=== PATIENT | female | born 1985 | race Caucasian/White ===

== ENCOUNTER 2022-06-02 14:21 | Emergency (ER) | payer MEDICAID, SELFPAY ==
[2022-06-02] VITALS (16 sets, daily range): BP systolic 124–131; BP diastolic 92–93; PULSE 74–93; RESP 16–25; O2SAT 95–100; BMI 27.4
--- NOTE | 2022-06-02 14:31 | W.ED.CHESTPA ---
HPI - Chest Pain General: Chief Complaint: Chest Pain Stated Complaint: chest tightness Time Seen by Provider: 06/02/22 14:31 History of Present Illness: Ms Herrera is a 36-year-old lady with complex past medical history including history of myocardial infarction in 2012 and history of arrhythmia with ablation presenting to the emergency department due to chest tightness and tachycardia. She reports mild intermittent episodes a few times a week that are typically short-lived however today has had multiple of persistent episodes and recurrent episodes of palpitations with racing heart associated with chest tightness that radiates to the neck and shortness of breath. Intensity when present is moderate to severe. This has not completely resolved despite improvement in heart rate and currently is mild. She was seen in clinic and heart rate at that time was in the 200s however converted with IV start prior to medication or other treatment. She does report being compliant with her metoprolol regimen and has not missed any doses. No other specific changes in health, exacerbating, or alleviating factors identified. Onset (ago): hour(s) Timing of current episode: constant Prior episodes: Yes Onset: during rest Pain location: substernal Pain radiation: neck Severity: moderate Quality: tightness and heaviness Relieving factors: nothing Exacerbating factors: nothing Associated symptoms: Reports dyspnea and palpitations Review of Systems General: Reports: 10 or more systems reviewed and unremarkable except in HPI and below Card: Reports: palpitations Resp: Reports: dyspnea PFSH ED PFSH: Medical History History of atrial fibrillation History of congestive heart failure History of [place] (myocardial infarction) Surgical History History of bilateral tubal ligation History of low transverse section history of six previous c-sections Family History Unknown Cancer 1st maternal cousin, ovarian cancer, hysterectomy, alive 1st materlnal cousin, uterine cancer, hysterectomy, alive She denies a family hx of colon, pancreatic, breast, thyroid cancers Other Diabetes Hypertension Denies family history of Stroke Physical Exam Const: COMMON NORMALS: alert GENERAL APPEARANCE: cooperative and well developed HENMT: COMMON NORMALS: normocephalic and atraumatic HEAD & SCALP: normocephalic and atraumatic Eye: COMMON NORMALS: conjunctivae normal CONJUNCTIVA: Yes conjunctivae normal SCLERA: sclerae normal Neck/C-Spine: COMMON NORMALS: supple GENERAL: Yes trachea midline Resp: COMMON NORMALS: clear to auscultation bilaterally EFFORT & INSPECTION: Yes able to speak in complete sentences AUSCULTATION: clear to auscultation bilaterally Cardio: COMMON NORMALS: regular rhythm RATE: tachycardic RHYTHM: regular rhythm GI: COMMON NORMALS: Soft to palpation PALPATION: Yes Soft to palpation and No Tenderness to palpation present (GI) Extremity: GENERAL: Yes normal exam except as noted and No edema Neuro: COMMON NORMALS: moves all extremities SENSORIUM/ORIENTATION: Yes alert and No Orientation impaired Psych: COMMON NORMALS: mental status grossly normal and Normal thought process present THOUGHT PROCESS: Normal thought process present Course Vital Signs: Vital signs: Vital Signs Pulse Rate 77 06/02/22 18:00 Respiratory Rate 16 06/02/22 18:00 Blood Pressure 124/92 06/02/22 18:00 Pulse Oximetry 98 06/02/22 18:00 Oxygen Delivery Me thod 06/02/22 14:36 MDM - Chest Pain Medical Decision Making 36-year-old lady presenting with chest tightness and palpitations. Patient does have history of SVT. Exam as above. She is nontoxic in appearance. EKG notable for sinus tachycardia, nonspecific URS segment abnormalities, no STEMI. Labs with no leukocytosis, normal hemoglobin, normal platelet count. Metabolic end without acute derangement to explain symptoms. Intermediate range 2-hour delta troponin though not unexpected in the context of tachycardia. hCG is negative as is urinalysis. Chest x-ray with no lobar consolidation or pneumothorax. Patient treated with aspirin and 500 cc bolus of IV fluids. On reassessment patient feels improved with improvement in heart rate. The most likely etiology of patient symptoms is unclear, likely secondary to underlying arrhythmia. The results of ED evaluation were discussed with the patient including possible disposition options. I offered admission which the patient declined. Plan for outpatient follow-up with cardiology. I discussed prescriptions and/or symptomatic cares (if applicable) including appropriate and responsible use, followup plan, and return precautions. The patient verbalized understanding and felt safe for discharge. Medical Records I reviewed the patient's medical records. Lab Data I reviewed the patient's lab results. 06/02/22 14:50 06/02/22 14:50 Radiology Impressions Chest X-Ray 06/02/22 14:38 IMPRESSION: No acute findings. Laboratory Results WBC 9.3 10^3/uL (4.0-10.0) 06/02/22 14:50 RBC 5.08 10^6/uL (4.1-5.3) 06/02/22 14:50 Hgb 11.8 g/dL (11.5-15.3) 06/02/22 14:50 Hct 38.2 % (37.0-47.0) 06/02/22 14:50 MCV 75.2 fl (81-99) L 06/02/22 14:50 MCH 23.2 pg (28.0-34.0) L 06/02/22 14:50 MCHC 30.9 g/dL (30.0-36.0) 06/02/22 14:50 RDW 20.8 % (12.1-15.1) H 06/02/22 14:50 Plt Count 350 10^3/cmm (130-400) 06/02/22 14:50 MPV 10.7 fL (7.4-10.4) H 06/02/22 14:50 Neut % (Auto) 66.7 % 06/02/22 14:50 Lymph % (Auto) 23.0 % 06/02/22 14:50 [place] % (Auto) 6.7 % 06/02/22 14:50 Eos % (Auto) 2.3 % 06/02/22 14:50 Baso % (Auto) 1.1 % 06/02/22 14:50 Neut # (Auto) 6.21 10^3/uL (1.8-7.7) 06/02/22 14:50 Lymph # (Auto) 2.1 10^3/uL (0.8-4.8) 06/02/22 14:50 [place] # (Auto) 0.6 10^3/uL (0.2-0.9) 06/02/22 14:50 Eos # (Auto) 0.2 10^3/uL (0.0-0.8) 06/02/22 14:50 Baso # (Auto) 0.1 10^3/uL (0.0-0.1) 06/02/22 14:50 Nucleated RBC % (auto) 0 % 06/02/22 14:50 Nucleated RBCs # 0.0 /100WBC 06/02/22 14:50 Sodium 138 mmol/L (136-145) 06/02/22 14:50 Potassium 4.1 mmol/L (3.5-5.1) 06/02/22 14:50 Chloride 106 mmol/L (98-107) 06/02/22 14:50 Carbon Dioxide 23 mmol/L (22-29) 06/02/22 14:50 Anion Gap 13.1 (5-19) 06/02/22 14:50 BUN 12 mg/dL (6-20) 06/02/22 14:50 Creatinine 0.6 mg/dL (0.5-0.9) 06/02/22 14:50 GFR Calculation 112.5 mL/min (90-130) 06/02/22 14:50 Glucose 91 mg/dL (65-115) 06/02/22 14:50 Calculated Osmolality 285 mOsm/kg (285-295) 06/02/22 14:50 Calcium 8.9 mg/dL (8.5-10.5) 06/02/22 14:50 Magnesium 2.1 mg/dL (1.7-2.3) 06/02/22 14:39 Total Bilirubin 0.2 mg/dL (0.15-1.2) 06/02/22 14:50 AST 19 U/L (0-32) 06/02/22 14:50 ALT 15 U/L (0-33) 06/02/22 14:50 Alkaline Phosphatase 50 U/L (35-105) 06/02/22 14:50 Troponin T Baseline 12 ng/L (0-10) H 06/02/22 14:50 Troponin T 120 Minute 18.43 ng/L (0-10) H 06/02/22 16:58 Delta Troponin T 6.43 ABS# (0-10) 06/02/22 16:58 NT-Pro-B Natriuret Pep 597 pg/mL (0-125) H 06/02/22 14:50 Total Protein 6.4 g/dL (6.6-8.7) L 06/02/22 14:50 Albumin 4.0 g/dL (3.5-5.2) 06/02/22 14:50 Globulin 2.4 g/dL (1.3-4.6) 06/02/22 14:50 Lipase 39 U/L (13-60) 06/02/22 14:50 HCG, Qual Negative (Negative) 06/02/22 14:31 Urine Color Yellow (Yellow) 06/02/22 14:31 Urine Appearance Clear (CLEAR) 06/02/22 14:31 Urine pH 7 (5-7) 06/02/22 14:31 Ur Specific [place] 1.010 (1.005-1.030) 06/02/22 14:31 Urine Protein Neg (Negative) 06/02/22 14:31 Urine Glucose (UA) Norm (Normal) 06/02/22 14:31 Urine Ketones Negative (Negative) 06/02/22 14:31 Urine Blood Neg (Negative) 06/02/22 14:31 Urine Nitrate Negative (Negative) 06/02/22 14:31 Urine Bilirubin Neg (Negative) 06/02/22 14:31 Urine Urobilinogen Norm mg/dL (Negative) 06/02/22 14:31 Ur Leukocyte Esterase Negative (Negative) 06/02/22 14:31 Discharge Plan Discharge Patient Disposition: Home Clinical Impression: Chest pain, Tachyarrhythmia Condition: Stable Prescriptions: New metoprolol tartrate 25 mg tablet 25 mg PO TID PRN (Reason: tachycardia) Qty: 30 0RF No Action ferrous sulfate 325 mg (65 mg iron) tablet,delayed release (DR/EC) 325 mg PO DAILY metoprolol succinate 25 mg tablet extended release 24 hr 25 mg PO DAILY Aspir-81 81 mg Tablet,Delayed Release (Dr/Ec) 81 mg PO DAILY Vitamin D3 25 mcg (1,000 unit) Capsule 25 mcg PO DAILY Discharge Orders: Discharge ED (Routine); Ordered 06/02/22 Ordered By: John Huang Discharge Diet: Usual diet Discharge Activity: Resume usual activity Patient Instructions: Chest Pain (ED), Tachycardia (ED) Activity Restrictions/Additional Instructions: Thank you for visiting the emergency department. You were seen and evaluated for chest pain associated with high heart rate. The exact cause of the change in your arrhythmia is unclear. I did offer admission which you are declining at this time. I will message case management for further outpatient testing and follow-up with cardiology. Please continue your previous medication regimen. I will also prescribe metoprolol 25 mg to take as needed up to 3 times daily for high heart rate. Return to the emergency department for anything that you are concerned about and feel needs emergency department evaluation. Coding Level of Care Code ED Prop And Effects Designer for Frances Soliz
--- NOTE | 2022-06-02 14:38 | XRR_ITS ---
PROCEDURE INFORMATION: Exam: XR Chest Exam date and time: 06/02/2022 2:42 PM Age: 36 years old Clinical indication: Pain; Patient HX: History--chronic chest tightness, SOB; Additional info: Cp, tachycardia TECHNIQUE: Imaging protocol: Radiologic exam of the chest. Views: 1 view. COMPARISON: No relevant prior studies available. FINDINGS: Lungs: Unremarkable. No consolidation. Pleural spaces: Unremarkable. No pleural effusion. No pneumothorax. Heart/Mediastinum: Unremarkable. No cardiomegaly. Bones/joints: Unremarkable. XR/XR chest 1V portable [id number] IMPRESSION: No acute findings.
--- NOTE | 2022-06-02 14:38 | ECG_ITS ---
[facility] Test Date: 2022-06-02 Pat Name: Arlene Herrera Department: Room: Gender: Female Filenet Developer: : 1985 Requested By: John Huang Order Number: [id number] Sarah MD: Lorelei Thompson M.D. Measurements Intervals [place] Rate: 106 P: 73 UT: 132 QRS: 8 QRSD: 117 T: 43 QT: 356 QTc: 474 Interpretive Statements SINUS TACHYCARDIA POSSIBLE LEFT VENTRICULAR HYPERTROPHY [VOLTAGE CRITERIA PLUS LAE OR QRS WIDENING] POSSIBLE SEPTAL MYOCARDIAL INFARCTION , OF INDETERMINATE AGE [30 ms Q WAVE IN V1/V2] No previous ECG available for comparison Electronically Signed On 06-02-2022 22:49:05 CDT by Lorelei Thompson M.D. [id number]
[2022-06-02] MEDS: aspirin 81 mg Chew Tablet 324 MG PO (14:52)
[2022-06-02] MEDS: sodium chloride 0.9% 500 ML 999 ML IV (14:53)
[2022-06-02 14:55] LABS: HCG Qualitative Urine. Negative (Negative)
[2022-06-02 14:59] LABS: Basophils # 0.1 10^3/uL (0.0-0.1); Basophils % 1.1 %; Eosinophils # 0.2 10^3/uL (0.0-0.8); Eosinophils % 2.3 %; Hematocrit 38.2 % (37.0-47.0); Hemoglobin 11.8 g/dL (11.5-15.3); Lymphocytes # 2.1 10^3/uL (0.8-4.8); Mean Corpuscular HGB Conc 30.9 g/dL (30.0-36.0); Mean Corpuscular Hemoglobin 23.2 pg (28.0-34.0); Mean Corpuscular Volume 75.2 fl (81-99); Mean Platelet Volume 10.7 fL (7.4-10.4); Monocytes # 0.6 10^3/uL (0.2-0.9); Monocytes % 6.7 %; Neutrophils # 6.21 10^3/uL (1.8-7.7); Neutrophils % 66.7 %; Nucleated Red Blood Cells % 0 %; Platelet Count 350 10^3/cmm (130-400); Red Blood Count 5.08 10^6/uL (4.1-5.3); Red Cell Distribution Width 20.8 % (12.1-15.1); White Blood Count 9.3 10^3/uL (4.0-10.0)
[2022-06-02 15:21] LABS: Troponin(5th) Baseline 12 ng/L (0-10)
[2022-06-02 15:33] LABS: Alanine Aminotransferase 15 U/L (0-33); Alkaline Phosphatase 50 U/L (35-105); Anion Gap 13.1 (5-19); Aspartate Amino Transferase 19 U/L (0-32); Blood Urea Nitrogen 12 mg/dL (6-20); Calcium 8.9 mg/dL (8.5-10.5); Carbon Dioxide 23 mmol/L (22-29); Chloride 106 mmol/L (98-107); Globulin 2.4 g/dL (1.3-4.6); Glomerular Filtration Rate 112.5 mL/min (90-130); Glucose 91 mg/dL (65-115); Lipase 39 U/L (13-60); NT Pro B Type Natriuretic Pept 597 pg/mL (0-125); Osmolality Calculated 285 mOsm/kg (285-295); Potassium 4.1 mmol/L (3.5-5.1); Sodium 138 mmol/L (136-145); Total Bilirubin 0.2 mg/dL (0.15-1.2); Total Protein 6.4 g/dL (6.6-8.7)
[2022-06-02 16:09] LABS: Magnesium 2.1 mg/dL (1.7-2.3)
[2022-06-02 16:11] LABS: Add Urine Microscopic? NO; Charge for UA Resulting for Rev
[2022-06-02 16:17] LABS: Bilirubin Urine Neg (Negative); Blood Urine Neg (Negative); Glucose Urine UA Norm (Normal); Ketones Urine Negative (Negative); Leukocyte Esterase Urine Negative (Negative); Nitrate Urine Negative (Negative); Protein Urine Neg (Negative); Urine Appearance Clear (CLEAR); Urine Color Yellow (Yellow); Urobilinogen Urine Norm (Negative); pH Urine 7 (5-7)
--- NOTE | 2022-06-02 16:38 | ECG_ITS ---
[facility] Test Date: 2022-06-02 Pat Name: Arlene Herrera Department: Room: Gender: Female Manager Strategic Sourcing: : 1985 Requested By: John Huang Order Number: [id number] Smith MD: Lorelei Thompson M.D. Measurements Intervals [place] Rate: 79 P: 70 [place]: 162 QRS: 24 QRSD: 119 T: 9 QT: 402 QTc: 462 Interpretive Statements SINUS RHYTHM SEPTAL MYOCARDIAL INFARCTION , OF INDETERMINATE AGE [40+ ms Q WAVE IN V1/V2] Compared to ECG 06/02/2022 14:29:52 Sinus tachycardia no longer present Myocardial infarct finding still present Electronically Signed On 06-03-2022 23:09:09 CDT by Lorelei Thompson M.D. [id number]
[2022-06-02 17:24] LABS: Troponin 5 2HR 18.43 ng/L (0-10); Troponin 5 2HR Delta 6.43 ABS# (0-10)
--- NOTE | 2022-06-03 11:43 | DCPLANNER ---
Addendum entered by Marie Bustamante 07/26/22 14:20: Patient had a follow up appointment scheduled with [facility] - patient did attend appointment. Addendum entered by Marie Bustamante 06/06/22 08:51: Patient has a follow up appointment scheduled for Monday, June 25, 2022 at 1:[address] Dudley at [facility] - clinic will call patient with appointment information. Original Note: sales promotion manager had message to schedule an outpatient echo cardiogram for patient. sales promotion manager faxed signed order to centralized scheduling, who will call patient with appointment information. sales promotion manager had message to schedule a follow up appointment for patient with cardiology. sales promotion manager sent patients information to the front office staff at [facility]. Patients information will be printed and reviewed. Clinic will call patient with appointment information.
== END 2022-06-02 18:13 | disposition home or self-care (01) ==
PROVIDERS: Emergency Provider Emergency Medicine; PCP Nurse Practitioner Family
DX: R07.9 Chest pain, unspecified (principal); R00.0 Tachycardia, unspecified; Z79.82 Long term (current) use of aspirin; I50.9 Heart failure, unspecified; I25.2 Old myocardial infarction
CPT/HCPCS: 36415; 71045; 80053; 81003; 81025; 83690; 83735; 83880; 84484; 85025; 93005; 96360; 99285; J7040

== ENCOUNTER 2022-06-17 08:22 | Outpatient (CLI) | payer MEDICAID, SELFPAY ==
--- NOTE | 2022-06-17 08:45 | US_ITS ---
WS: [id number] US transvaginal [id number] HISTORY: N93.9 - Abnormal uterine and vaginal bleeding, unspecified COMPARISON: None available. Uterus: 9.0 cm x 7.0 cm x 5.6 cm. Normal size anteverted uterus. There is a small fluid collection along the lower uterine segment near the scar measuring 1.3 x 0.5 x 0.5 cm. Inseparable from the LEFT lateral uterus is a hypoechoic mass with shadowing which is separate from t he ovary. Mass measures 4.0 x 4.2 x 3.2 cm. There is a small amount of increased vascularity. Endometrium: 0.6 cm. Normal. Normal vascularity. Right ovary: 3.0 cm x 2.2 cm x 2.2 cm. Normal size and vascularity, no cystic or solid masses. Left ovary: 3.5 cm x 3.8 cm x 2.4 cm. Normal size and vascularity, no cystic or solid masses. No free fluid in the cul-de-sac. US/US transvaginal [id number] IMPRESSION: 1. Normal endometrium. 2. Hypoechoic mass in the LEFT adnexa inseparable from the LEFT lateral uterus and anterior to the LEFT ovary. Mass measures 4.0 x 4.2 x 3.2 cm. Suspect this is probably an exophytic fibroid. Potentially there could be a small connectio n to the ovary making this an ovarian mass. Recommend close follow-up and possi ble surgical removal. 3. No free fluid.
== END 2022-06-17 08:23 | disposition home or self-care (01) ==
LOC: RAD 08:24
PROVIDERS: PCP Nurse Practitioner Family; Visit Provider Obstetrics & Gynecology
DX: N93.9 Abnormal uterine and vaginal bleeding, unspecified (principal)
CPT/HCPCS: 76830; 87624

== ENCOUNTER 2022-07-12 07:15 | Outpatient (CLI) | payer MEDICAID, SELFPAY ==
--- NOTE | 2022-07-12 07:15 | MR_ITS ---
WS: [id number] MRI OF THE PELVIS WITHOUT AND WITH GADOLINIUM ENHANCEMENT. INDICATION: LEFT adnexal mass on ultrasound. COMPARISON: Ultrasound June 17, 2022 TECHNIQUE: Coronal T2, axial T1, axial T2, sagittal T2, coronal T2, axial T1, post gadolinium fat sat uration imaging was obtained. FINDINGS: Multifollicular RIGHT ovary. Anteverted uterus with normal-appearing endometrium. Lobulated enhancing low signal lesion involving the LEFT lateral uterus along the lower uterine segment measur ing approximately 3.6 x 3.3 x 3.9 cm AP by transverse by craniocaudal compatible with exophytic fibro id. This corresponds to the recent ultrasound findings. Associated mass effect and narrowing along th e endocervical canal and internal cervical os. Normal appearing multifollicular LEFT ovary. Normal bladder. Partially visualized sigmoid colon appea rs normal. Concave fundal indentation of the uterus compatible with arcuate uterus configuration. MR/MR pelvis wo/w con [id number] IMPRESSION: 1. Previous described ultrasound findings correspond to an eccentric fibroid a long the lower LEFT uterine segment measuring 3.6 x 3.3 x 3.9 CM. Associated ma ss effect on the endometrial canal and internal cervical os 2. Multifollicular normal-appearing ovaries bilaterally. 3. Arcuate configuration to the uterus. 4. No other suspicious abnormalities.
[2022-07-12] MEDS: gadobenate dimeglumine 20 mL vial IV (08:36)
== END 2022-07-12 07:16 | disposition home or self-care (01) ==
LOC: RAD 07:19
PROVIDERS: PCP Nurse Practitioner Family; Visit Provider Obstetrics & Gynecology
DX: N94.89 Other specified conditions associated with female genital organs and menstrual cycle (principal)
CPT/HCPCS: 72197; A9577

== ENCOUNTER → 2022-07-25 13:20 | Outpatient (BNVA) | payer MEDICAID, SELFPAY | PROVIDERS: PCP Nurse Practitioner Family; Visit Provider Internal Medicine | DX: R07.9 Chest pain, unspecified (principal) | CPT/HCPCS: 93005 ==

== ENCOUNTER 2022-08-29 13:12 | Outpatient (CLI) | payer MEDICAID, SELFPAY ==
--- NOTE | 2022-08-29 13:30 | USCV_ITS ---
Arlene Herrera Age: 36 Gender: F : 1985 Exam Date: 08/29/2022 14:09 Ordering Phys: Wu Dudley M.D ([email or web address]) Technologist: Janey [place] [facility] [place]: cardiomyopathy, SOB, CAD BP: 130 / 87 HR: 92 Rhythm: Sinus Technical Quality: Good MEASUREMENTS (Male / Female) Normal Values 2D ECHO LV Diastolic Diameter PLAX 5.1 cm 4.2 - 5.9 / 3.9 - 5.3 cm LV Systolic Diameter PLAX 4.2 cm IVS Diastolic Thickness 0.9 cm 0.6 - 1.0 / 0.6 - 0.9 cm IVS Systolic Thickness 1.0 cm LVPW Diastolic Thickness 1.2 cm 0.6 - 1.0 / 0.6 - 0.9 cm LVPW Systolic Thickness 1.7 cm LVOT Diameter 2.0 cm LV Ejection Fraction 2D Teich 37.3 % LV Ejection Fraction MOD 2C 52.0 % LV Ejection Fraction 2C AL 49.7 % LA Diameter 2.8 cm LA Width 3.3 cm LA Height 3.9 cm RA Width 3.6 cm RA Height 3.5 cm Aorta at Sinotubular Diameter 3.2 cm IVC Diameter 1.8 cm M-MODE Aortic Annulus Diameter 2.7 cm LA Ao Ratio MM 1.1 MV E Point Septal Separation 0.9 cm DOPPLER AV Peak Velocity 134.0 cm/s LVOT Peak Velocity 94.0 cm/s AV Area Cont Eq vti 2.5 cm squared AV Area Cont Eq pk 2.2 cm squared MV Peak Velocity 138.0 cm/s MV Area PHT 5.0 cm squared Mitral E to A Ratio 1.3 MV E' Velocity 62.0 cm/s Mitral E to MV E' Ratio 9.6 Mitral E to LV E' Lateral Ratio 7.3 Mitral E to LV E' Septal Ratio 14.3 TR Peak Velocity 53.0 cm/s TR Peak Gradient 1.1 mmHg Right Atrial Pressure 5.0 mmHg Pulmonary Artery Systolic Pressu 6.1 mmHg RV Acceleration Time 0.1 s RV Ejection Time 0.3 s RV AcT/ET 0.5 FINDINGS Left Ventricle Left ventricle is dilated. LV systolic function is moderately reduced with EF of 35 to 40%. Moderate global hypokinesis is seen. Right Ventricle RV is mildly hypokinetic Right Atrium Normal in size Left Atrium Normal in size Mitral Valve Structurally normal mitral valve. Trace mitral regurgitation. Aortic Valve Structurally normal aortic valve. No significant stenosis. Mild aortic regurgitation Tricuspid Valve Mild tricuspid regurgitation. Insufficient TR jet to calculate RVSP Pulmonic Valve Not well visualized Pericardium Normal Aorta Normal in size IVC Appears to be normal CONCLUSIONS Left ventricle is dilated. LV systolic function is moderately reduced with EF of 35 to 40% Moderate global hypokinesis seen. RV is mildly hypokinetic. Trace mitral regurgitation Mild aortic regurgitation Mild tricuspid regurgitation No comparison studies are available Wu Dudley MD (Electronically Signed) Final Date: 03 September 2022 15:28 S
== END 2022-08-29 13:13 | disposition home or self-care (01) ==
PROVIDERS: PCP Nurse Practitioner Family; Visit Provider Internal Medicine
DX: R07.9 Chest pain, unspecified (principal); R06.02 Shortness of breath; I42.9 Cardiomyopathy, unspecified; I25.10 Atherosclerotic heart disease of native coronary artery without angina pectoris; I35.1 Nonrheumatic aortic (valve) insufficiency; I07.1 Rheumatic tricuspid insufficiency
CPT/HCPCS: 93306

== ENCOUNTER 2022-09-12 16:10 | Emergency (ER) | payer MEDICAID, SELFPAY ==
[2022-09-12 16:36] VITALS: BP 133/89; PULSE 78; RESP 14; TEMP 36.6; O2SAT 97; BMI 30.9
--- NOTE | 2022-09-12 17:04 | ECG_ITS ---
[facility] Test Date: 2022-09-12 Pat Name: Arlene Herrera Department: Room: Gender: Female Radar Systems Engineer: : 1985 Requested By: Landon Tavares Order Number: [id number] Sarah MD: Lorelei Thompson M.D. Measurements Intervals [place] Rate: 87 P: 61 CO: 156 QRS: -17 QRSD: 130 T: 7 QT: 434 QTc: 523 Interpretive Statements SINUS RHYTHM WITH FREQUENT ECTOPIC PREMATURE COMPLEXES POSSIBLE LEFT ATRIAL ENLARGEMENT [-0.1mV P-WAVE IN V1/V2] LEFT VENTRICULAR HYPERTROPHY AND ST-T CHANGE [VOLTAGE CRITERIA PLUS ST/T ABNORMALITY] POSSIBLE SEPTAL MYOCARDIAL INFARCTION , OF INDETERMINATE AGE [30 ms Q WAVE IN V1/V2] Compared to ECG 07/25/2022 13:30:31 Myocardial infarct finding now present ST (T wave) deviation still present Electronically Signed On 09-12-2022 18:42:34 CDT by Lorelei Thompson M.D. [id number]
--- NOTE | 2022-09-12 17:04 | XRR_ITS ---
PROCEDURE INFORMATION: Exam: XR Chest Exam date and time: 09/12/2022 5:08 PM Age: 36 years old Clinical indication: Other: Palpitations TECHNIQUE: Imaging protocol: Radiologic exam of the chest. Views: 1 view. COMPARISON: CR XR chest 1V portable [id number] 06/02/2022 2:42 PM FINDINGS: Lungs: Unremarkable. No consolidation. Pleural spaces: Unremarkable. No pleural effusion. No pneumothorax. Heart/Mediastinum: Unremarkable. No cardiomegaly. Bones/joints: Unremarkable. XR/XR chest 1V portable [id number] IMPRESSION: No acute findings.
[2022-09-12 17:08] VITALS: BP 140/93; PULSE 81; RESP 15; O2SAT 97
--- NOTE | 2022-09-12 17:12 | W.ED.ARRPALP ---
HPI - Arrhythmia/Palpitations General: Chief Complaint: Arrhythmia/Palpitations Stated Complaint: heart beat fast, SOB, chest tight Time Seen by Provider: 09/12/22 17:03 Source: patient Mode of arrival: ambulatory History of Present Illness: 36-year-old female with a history of atrial fibrillation presents emergency room complaining of irregular rapid heart rates intermittently. She is on metoprolol 25 p.o. twice daily has been taking regularly. She sees cardiology she is not on any anticoagulation. No chest pain or tightness no difficulty breathing. MD complaint: rapid heart beat, skipped beats and palpitations Onset (ago): hour(s) Duration: intermittent Severity: mild Arrhythmia history: atrial fibrillation Associated symptoms: Deny anxiety, cough, diaphoresis, muscle cramps, nausea, paresthesias, pre-syncope, sense of impending doom, short of breath, syncope, vomiting or other Review of Systems Const: Denies: fever(s), chills or diaphoresis Card: Reports: palpitations and irregular heart rhythm; Denies: chest pain, syncope or pre-syncope Resp: Denies: dyspnea, productive cough or non-productive cough GI: Denies: abdominal pain, nausea or vomiting : Denies: flank pain, difficulty voiding, dysuria, urinary frequency or urinary urgency Musc: Denies: muscle cramps Skin/Breast: Denies: rash or pruritus Psych: Denies: anxiety PFSH ED PFSH: Medical History History of atrial fibrillation History of congestive heart failure History of [place] (myocardial infarction) Surgical History History of bilateral tubal ligation History of low transverse section history of six previous c-sections Family History Unknown Cancer 1st maternal cousin, ovarian cancer, hysterectomy, alive 1st materlnal cousin, uterine cancer, hysterectomy, alive She denies a family hx of colon, pancreatic, breast, thyroid cancers Other Diabetes Hypertension Denies family history of Stroke Physical Exam Const: GENERAL APPEARANCE: cooperative and comfortable ORIENTATION/CONSCIOUSNESS: Yes awake, Yes oriented to person, Yes oriented to place and Yes oriented to time HENMT: COMMON NORMALS: normocephalic, atraumatic and hearing grossly normal bilaterally HEAD & SCALP: normocephalic and atraumatic Resp: COMMON NORMALS: normal respiratory effort, No retractions, No use of accessory muscles and clear to auscultation bilaterally AUSCULTATION: clear to auscultation bilaterally Cardio: COMMON NORMALS: regular rate, regular rhythm and No murmurs present (Cardio) RATE: regular rate RHYTHM: regular rhythm GI: COMMON NORMALS: Soft to palpation and No hepatosplenomegaly present AUSCULTATION: Yes normoactive bowel sounds PALPATION: Yes Soft to palpation, No Tenderness to palpation present (GI), No Guarding due to palpation present (GI) and Yes No hepatosplenomegaly present Extremity: COMMON NORMALS: normal to inspection, capillary refill normal, no clubbing, cyanosis or edema, no calf tenderness and no pedal edema Neuro: SENSORIUM/ORIENTATION: Yes oriented to person, Yes oriented to place and Yes oriented to time Skin: COMMON NORMALS: no rashes or lesions noted GENERAL SKIN EXAM: no rashes or lesions noted Course Vital Signs: Vital signs: Vital Signs Temperature 97.9 F 09/12/22 16:36 Pulse Rate 87 09/12/22 18:07 Respiratory Rate 15 09/12/22 17:08 Blood Pressure 131/101 09/12/22 18:07 Pulse Oximetry 93 09/12/22 18:07 Oxygen Delivery Me thod Room Air 09/12/22 17:08 MDM - Arrhythmia/Palpitations Medical Decision Making Labs and EKG reviewed. Patient shows frequent PVCs but no evidence of A-fib. 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 Medical Records I reviewed the patient's medical records. Lab Data I reviewed the patient's lab results. 09/12/22 17:22 09/12/22 17:22 Radiology Impressions Chest X-Ray 09/12/22 17:04 IMPRESSION: No acute findings. Laboratory Results WBC 8.5 10^3/uL (4.0-10.0) 09/12/22 17:22 RBC 4.86 10^6/uL (4.1-5.3) 09/12/22 17:22 Hgb 13.0 g/dL (11.5-15.3) 09/12/22 17:22 Hct 40.4 % (37.0-47.0) 09/12/22 17: MCV 83.1 fl (81-99) 09/12/22 17:22 MCH 26.7 pg (28.0-34.0) L 09/12/22 17:22 MCHC 32.2 g/dL (30.0-36.0) 09/12/22 17: RDW 14.7 % (12.1-15.1) 09/12/22 17:22 Plt Count 101 10^3/cmm (130-400) L 09/12/22 17:22 MPV 11.5 fL (7.4-10.4) H 09/12/22 17:22 Neut % (Auto) 53.2 % 09/12/22 17:22 Lymph % (Auto) 36.5 % 09/12/22 17:22 [place] % (Auto) 6.4 % 09/12/22 17: Eos % (Auto) 2.4 % 09/12/22 17:22 Baso % (Auto) 1.1 % 09/12/22 17:22 Neut # (Auto) 4.52 10^3/uL (1.8-7.7) 09/12/22 17:22 Lymph # (Auto) 3.1 10^3/uL (0.8-4.8) 09/12/22 17:22 [place] # (Auto) 0.5 10^3/uL (0.2-0.9) 09/12/22 17:22 Eos # (Auto) 0.2 10^3/uL (0.0-0.8) 09/12/22 17:22 Baso # (Auto) 0.1 10^3/uL (0.0-0.1) 09/12/22 17: Nucleated RBC % (auto) 0 % 09/12/22 17: Nucleated RBCs # 0.0 /100WBC 09/12/22 17:22 Sodium 134 mmol/L (136-145) L 09/12/22 17:22 Potassium 3.2 mmol/L (3.5-5.1) L 09/12/22 17: Chloride 101 mmol/L (98-107) 09/12/22 17:22 Carbon Dioxide 21 mmol/L (22-29) L 09/12/22 17:22 Anion Gap 15.2 (5-19) 09/12/22 17:22 BUN 7 mg/dL (6-20) 09/12/22 17:22 Creatinine 0.7 mg/dL (0.5-0.9) 09/12/22 17:22 GFR Calculation 94.2 mL/min (90-130) 09/12/22 17:22 Glucose 109 mg/dL (65-115) 09/12/22 17:22 Calculated Osmolality 277 mOsm/kg (285-295) L 09/12/22 17:22 Calcium 9.1 mg/dL (8.5-10.5) 09/12/22 17:22 Total Bilirubin 0.2 mg/dL (0.15-1.2) 09/12/22 17:22 AST 18 U/L (0-32) 09/12/22 17:22 ALT 15 U/L (0-33) 09/12/22 17:22 Alkaline Phosphatase 56 U/L (35-105) 09/12/22 17:22 Total Protein 6.9 g/dL (6.6-8.7) 09/12/22 17:22 Albumin 4.2 g/dL (3.5-5.2) 09/12/22 17:22 Globulin 2.7 g/dL (1.3-4.6) 09/12/22 17:22 TSH 1.33 uIU/mL (0.27-4.20) 09/12/22 17:22 Discharge Plan Discharge Patient Disposition: Home Clinical Impression: Ventricular premature beats Condition: Stable Prescriptions: No Action ferrous sulfate 325 mg (65 mg iron) tablet,delayed release (DR/EC) 325 mg PO DAILY metoprolol succinate 25 mg tablet extended release 24 hr 25 mg PO BID medroxyprogesterone [Depo-Provera] 150 mg/mL suspension 150 mg IM ONCE Qty: 1 0RF Pirmella 1-35 mg-mcg tablet See Rx Instructions .ROUTE .COMPLEX Qty: 35 1RF Rx Instructions: Take 2 tablets daily for 5 days then 1 tablet daily Aspir-81 81 mg Tablet,Delayed Release (Dr/Ec) 81 mg PO DAILY Vitamin D3 25 mcg (1,000 unit) Capsule 25 mcg PO DAILY Discharge Orders: Discharge ED (Routine); Ordered 09/12/22 Ordered By: Landon Brooks Referrals: Karen Merino [Primary Care Provider] - Discharge Diet: Usual diet Discharge Activity: Resume usual activity Patient Instructions: Opioid Safety, Pain Management Activity Restrictions/Additional Instructions: Case management make arrangements for you to have a 48-hour Holter monitor follow-up with Dr. Garcia after this is completed continue to take all your previously prescribed medications. Coding Level of Care Code ED Tamale Machine Feeder for Frances Soliz
[2022-09-12 17:33] LABS: Basophils # 0.1 10^3/uL (0.0-0.1); Basophils % 1.1 %; Eosinophils # 0.2 10^3/uL (0.0-0.8); Eosinophils % 2.4 %; Hematocrit 40.4 % (37.0-47.0); Lymphocytes # 3.1 10^3/uL (0.8-4.8); Lymphocytes % 36.5 %; Mean Corpuscular HGB Conc 32.2 g/dL (30.0-36.0); Mean Corpuscular Hemoglobin 26.7 pg (28.0-34.0); Mean Corpuscular Volume 83.1 fl (81-99); Mean Platelet Volume 11.5 fL (7.4-10.4); Monocytes # 0.5 10^3/uL (0.2-0.9); Monocytes % 6.4 %; Neutrophils # 4.52 10^3/uL (1.8-7.7); Neutrophils % 53.2 %; Nucleated Red Blood Cells % 0 %; Platelet Count 101 10^3/cmm (130-400); Red Blood Count 4.86 10^6/uL (4.1-5.3); Red Cell Distribution Width 14.7 % (12.1-15.1); White Blood Count 8.5 10^3/uL (4.0-10.0)
[2022-09-12 18:01] LABS: Alanine Aminotransferase 15 U/L (0-33); Albumin Level 4.2 g/dL (3.5-5.2); Alkaline Phosphatase 56 U/L (35-105); Anion Gap 15.2 (5-19); Aspartate Amino Transferase 18 U/L (0-32); Blood Urea Nitrogen 7 mg/dL (6-20); Calcium 9.1 mg/dL (8.5-10.5); Carbon Dioxide 21 mmol/L (22-29); Chloride 101 mmol/L (98-107); Globulin 2.7 g/dL (1.3-4.6); Glomerular Filtration Rate 94.2 mL/min (90-130); Glucose 109 mg/dL (65-115); Osmolality Calculated 277 mOsm/kg (285-295); Potassium 3.2 mmol/L (3.5-5.1); Sodium 134 mmol/L (136-145); Thyroid Stimulating Hormone 1.33 uIU/mL (0.27-4.20); Total Bilirubin 0.2 mg/dL (0.15-1.2); Total Protein 6.9 g/dL (6.6-8.7)
[2022-09-12 18:07] VITALS: BP 131/101; PULSE 87; O2SAT 93
== END 2022-09-12 18:10 | disposition home or self-care (01) ==
PROVIDERS: Emergency Provider Family Medicine; PCP Nurse Practitioner Family
DX: I49.40 Unspecified premature depolarization (principal)
CPT/HCPCS: 36415; 71045; 80053; 84443; 85025; 93005; 99284; 99285

== ENCOUNTER 2022-10-05 06:05 | Outpatient (CLI) | payer MEDICAID, SELFPAY ==
[2022-10-05] VITALS (15 sets, daily range): BP systolic 121–160; BP diastolic 74–111; PULSE 81–115; RESP 13–34; TEMP 36.9; O2SAT 96–99; BMI 31.0
--- NOTE | 2022-10-05 06:00 | XACV_ITS ---
Exam Room: 2 Ht: 163 cm Wt: 82 kg BSA: 1.95 m2 Gender: Female : 1985 Any Known Allergies: Other Exam Priority: Routine Procedure(s): Procedure Description: Diagnostic procedure Procedure Description: Left Heart Catheterization Procedure Description: Left ventriculography Procedure Description: Coronary Angiography Diagnostic Cath Status: Elective Diagnostic Findings * INDICATION: 37-year-old woman with past medical history of atrial fibrillation who has been having chest discomfort symptoms. Echo was performed that shows significantly decreased LV systolic function with EF of 35 to 40%. Plan for coronary angiogram with possible percutaneous coronary intervention. * No significant disease noted in the Left Main, Left Anterior Descending, Right, or Circumflex coronary arteries. * Coronary angiography shows co-dominance. Conclusions 1. No significant disease noted in the Left Main, Left Anterior Descending, Right, or Circumflex coronary arteries. 2. Non-ischemic cardiomyopathy. 3. Mild left ventricular systolic dysfunction. Ejection fraction of 45%. Recommendations * Aggressive risk factor modification. * Guideline directed heart failure therapy. * Outpatient cardiology follow up in 2-4 weeks. Interventional RX Recommendation: medical therapy and/or counseling Diagnostic RX Recommendation: medical therapy and/or counseling Anticoagulation: Heparin Ventriculography Ejection Fraction: 45.0 % Pressures Phase:Rest AO : 142 / 89 ( 112 ) @ 9:13:00 AM 141 / 88 ( 112 ) @ 9:13:00 AM LV : 147 / 0 / 17 @ 9:12:00 AM 153 / -9 / 17 @ 9:12:00 AM 152 / -8 / 17 @ 9:13:00 AM Valves Phase:DefaultPhase AV : 11.0 @ 8:17:50 AM 11.0 @ 8:17:50 AM AV Mean Gradient: 16.0 @ 8:17:50 AM Clinical Evaluation EBL: 5mL-10mL Procedural Details Procedure Consent Obtained. Pre-Procedure Time Out. Identified patient by full name and date of as verbalized by the patient/guarantor. Does the consent match the physician's order: Yes. Accurate & Complete Informed Consent: Yes. Inpatient/Outpatient History & Physical on Chart: Yes. If H&P is completed, is and addenduem needed: No. Visualize and Verify Site with Patient/Guarantor: N/A. Relevant Radiology Images available: Yes. The risks, benefits, and alternatives of sedation and/or procedure were discussed by physician. The patient agrees to continue. [facility] Clinical Fraility Score: 3: Managing Well. 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 Chest Pain Symptom Assessment: Atypical Angina. Cardiovascular Instability: No. Correct patient, site and procedure confirmed by cath team. PERRLA. Strong, equal hand manager mechanical bilaterally. Lungs clear x 5 lobes. IV Site on Arrival: 20 gauge in the right anticubital. IV Fluids: 0.9% NaCl at KVO. 0 mL infused prior to computer lab assistant. Pre Procedural Pulses: bilateral dorsalis pedis was 3+. Pre Procedural Pulses: bilateral posterior tibial was 3+. Pre Procedural Pulses: right brachial was 3+. Procedure started. Oxygen started at 2liters/min via nasal canula. right groin was prepped with chloroprep then draped in the usual sterile fashion. right radial was prepped with chloroprep then draped in the usual sterile fashion. Physician notified. Baseline sample Acquired. HR: 82 BPM. Patient's family unavailable. Equipment: 6F - Radial. Cardiac Cath Pack. ACIST Manifold Kit Model BT 2000. Heparinized Saline (2 units/mL), 1000 mL bag. Physician arrived. Physician scrubbed in. Immediate Pre-Procedure Time Out. Correct Patient: Yes; Correct Procedure: Yes; Correct Site: Yes; Correct Patient Position: Yes; Correct Supplies: Yes; Dried Flammable Prep: Yes; Blood Products Available: N/A;. Lidocaine 1% infiltrated to the right radial. Arterial access obtained. A 5 mongolian TIG catheter in over the exchange J wire. Multiple views taken of left coronary artery. Catheter redirected to the RCA. Multiple views taken of right coronary artery. Catheter removed over the exchange J wire. A 5 mongolian Angled Pig catheter in over the exchange J wire. EDP Sample taken: LV 147/-1,17; HR: 86 BPM; SpO2: 97%. LV gram performed in NAIR @ 10 mL/second for a total of 30 mL. EDP Sample taken: LV 153/-10,17; HR: 90 BPM; SpO2: 96%. Pullback taken: LV 152/-9,17; AO 142/89(112); Mean: 16mmHg, Peak to Peak: 11mmHg, SEP: 21sec/min; HR: 90 BPM; SpO2: 95%. Catheter removed over the exchange J wire. Physician scrubbed out. A TR Band was successful obtaining hemostatsis at the Right Radial artery insertion site. TR band placed. Hemostasis obtained. Post Procedure: Pulses reassessed and unchanged. PERRLA. Strong, equal hand manager mechanical bilaterally. No VTE prophylaxis required. Medication's Wasted: Lidocaine 1% = 2 mL. Medication's Wasted: Nitro = 49.8 mg. Medication's Wasted: Heparin = 1000 Units. Total IV fluids: 22 mL. Post-op diagnosis: Non-Obstructive CAD/Non-ischemic TRIAL JUDGE. Complications: none. Estimated blood loss: 5mL-10mL. Responsiveness - Normal response to verbal stimuli; alert and oriented, PERRLA. Airway - Unaffected, no intervention required; spontaneous ventilation. Circulation: W/N/L, pulses unchanged. Nausea/Vomiting: No. Procedure completed. Patient transferred by wheelchair to CPRU. Vital chart was stopped. Access Site Site: Right Radial artery Sheath Size: 6 Fr Hemostasis Method: TR Band Hemostasis Success: Successful Procedure Medications Start: 8:01 AM Stop: 8:01 AM Medication: Versed Amount: 1 mg Route: I.V. Start: 8:01 AM Stop: 8:01 AM Medication: Fentanyl Amount: 50 mcg Route: I.V. Start: 8:04 AM Stop: 8:04 AM Medication: Versed Amount: 1 mg Route: I.V. Start: 8:06 AM Stop: 8:06 AM Medication: Nitrogylcerin Amount: 200 mcg Route: I.A. Start: 8:08 AM Stop: 8:08 AM Medication: Heparin Amount: 5000 units Route: I.V. Start: 8:10 AM Stop: 8:10 AM Medication: Fentanyl Amount: 50 mcg Route: I.V. I, the attending physician, have reviewed and verified all procedure medications. Yes, all medications given per verbal order History/Risk Factors Hypertension: Yes Dyslipidemia: No Peripheral Arterial Disease (PAD): No Myocardial Infarction (OK): Yes Obesity: Yes Renal Disease: No Tobacco Use: Current/Recent(w/in 1 year) Prior Interventions PCI: No CABG: No Valve Surgery: No Report Signatures Finalized by Wu Dudley MD on 10/12/2022 10:36 AM
[2022-10-05] MEDS: aspirin 325 mg Tablet PO (06:30)
[2022-10-05] MEDS: diphenhydrAMINE 50 mg Capsule PO (06:30)
[2022-10-05 07:04] LABS: Basophils # 0.1 10^3/uL (0.0-0.1); Basophils % 1.2 %; Eosinophils # 0.3 10^3/uL (0.0-0.8); Eosinophils % 3.9 %; Hematocrit 42.8 % (37.0-47.0); Lymphocytes # 2.3 10^3/uL (0.8-4.8); Lymphocytes % 29.1 %; Mean Corpuscular HGB Conc 32.7 g/dL (30.0-36.0); Mean Corpuscular Hemoglobin 27.9 pg (28.0-34.0); Mean Corpuscular Volume 85.4 fl (81-99); Mean Platelet Volume 11.5 fL (7.4-10.4); Monocytes # 0.6 10^3/uL (0.2-0.9); Monocytes % 7.6 %; Neutrophils # 4.48 10^3/uL (1.8-7.7); Neutrophils % 57.8 %; Nucleated Red Blood Cells % 0 %; Platelet Count 293 10^3/cmm (130-400); Red Blood Count 5.01 10^6/uL (4.1-5.3); Red Cell Distribution Width 14.6 % (12.1-15.1); White Blood Count 7.7 10^3/uL (4.0-10.0)
[2022-10-05 07:20] LABS: Anion Gap 14.7 (5-19); Blood Urea Nitrogen 9 mg/dL (6-20); Calcium 9.3 mg/dL (8.5-10.5); Carbon Dioxide 24 mmol/L (22-29); Chloride 104 mmol/L (98-107); Glomerular Filtration Rate 111.9 mL/min (90-130); Glucose 90 mg/dL (65-115); Osmolality Calculated 286 mOsm/kg (285-295); Potassium 3.7 mmol/L (3.5-5.1); Sodium 139 mmol/L (136-145)
--- NOTE | 2022-10-05 08:00 | W.PM.OPSFHP ---
Same Day Surgery H&P Indication for Procedure/HPI DATE OF PROCEDURE: October 05, 2022 CHIEF COMPLAINT/INDICATIONFOR SURGICAL PROCEDURE: LV dysfunction/ Chest pain PREOP DIAGNOSIS: LV dysfunction/ Chest pain PLANNED PROCEDURE: Operation Date: 10/05/22 07:00 Proposed Procedures p [facility] 15489,R93.1, I47.1, I49.3(Left) - Wu Dudley M.D Possible percutaneous coronary intervention 37-year-old woman with past medical history of atrial fibrillation who has been having chest discomfort symptoms. Echo was performed that shows significantly decreased LV systolic function with EF of 35 to 40%. Plan for coronary angiogram with possible percutaneous coronary intervention. Medications/Allergies* Home Medications Medication Instructions Recorded Confirmed Type ferrous sulfate 325 mg (65 mg 325 mg PO DAILY 05/25/22 10/04/22 History iron) tablet,delayed release aspirin 81 mg tablet,delayed 81 mg PO DAILY 06/02/22 10/04/22 History release cholecalciferol (vitamin D3) 25 25 mcg PO DAILY 06/02/22 10/04/22 History mcg (1,000 unit) capsule (Vitamin D3) metoprolol succinate 25 mg 25 mg PO BID 07/25/22 10/04/22 History tablet,extended release 24 hr Allergies/Adverse Reactions Allergy/AdvReac Type Severity Reaction Status Date / Time Penicillins Allergy Intermediate urticaria Verified 09/12/22 16:36 tramadol [From Ultram] Allergy Intermediate urticaria Verified 09/12/22 16:36 Current Medications: Generic Name Dose Route Start Last Admin Trade Name Freq PRN Reason Stop Dose Admin Sodium Chloride 1,000 mls @ 50 mls/hr 10/05/22 06:00 10/05/22 06:30 Sodium Chloride 0.9% IV 10/06/22 01:59 Not Given .Q20H ONE Pertinent History/Comorbid Conditions* Medical History (Updated 09/20/22 @ 00:08 by MITESH Benito) History of atrial fibrillation History of congestive heart failure History of [place] (myocardial infarction) Surgical History (Updated 05/25/22 @ 14:11 by Giorgi Macias MD) History of bilateral tubal ligation History of low transverse section history of six previous c-sections Family History (Updated 05/25/22 @ 09:50 by Gabriella Bell LPN) Diabetes Cancer Unknown 1st maternal cousin, ovarian cancer, hysterectomy, alive 1st materlnal cousin, uterine cancer, hysterectomy, alive She denies a family hx of colon, pancreatic, breast, thyroid cancers Hypertension Denies family history of Stroke Pertinent Exam Findings alert, oriented x 3, clear to auscultation bilaterally and regular rate & rhythm Conscious Sedation Assessment PATIENT ASSESSED PRIOR TO SEDATION, WITH NO CHANGE NOTED: Yes AIRWAY EVAL/ANESTHESIA PLAN: normal airway, ASA III, Local Anesthesia, Risks, benefits & alternatives of sedation and/or procedure discussed and Patient agrees to continue as planned ADDITIONAL INFORMATION: Moderate sedation Recommendations Surgery/Procedure today (Left heart cath with possible percutaneous coronary intervention) Coding Level of Care Code Acute Code for Chg Fwd Diagnoses
--- NOTE | 2022-10-05 11:38 | PC.NURSE ---
1000 : TR Band removed from patients right wrist. No drainage or hematoma noted. Vitals stable. No c/o pain or discomfort. Cleaned around site with soap and water, covered puncture site with bandaid. 1130: Discharge orders received. Dsg over puncture site to patients right wrist clean, dry, et intact. No drainage or hematoma noted. Vitals stable. No c/o pain or discomfort. Education patient over post cardiac cath activity restrictions and s/s of infection. Patient verbalized understanding of all teaching. Follow up appointments made. Patient discharged to home from CPRU via wheelchair in private vehicle with spouse. All belongings sent with patient.
== END 2022-10-05 11:44 | disposition home or self-care (01) ==
PROVIDERS: PCP Nurse Practitioner Family; Visit Provider Internal Medicine
DX: R93.1 Abnormal findings on diagnostic imaging of heart and coronary circulation (principal); R07.9 Chest pain, unspecified; I48.91 Unspecified atrial fibrillation; Z79.82 Long term (current) use of aspirin; I10 Essential (primary) hypertension; F17.200 Nicotine dependence, unspecified, uncomplicated
CPT/HCPCS: 36415; 80048; 85025; 93458; 96365; 99152; C1769; C1887; C1894; J1644; J2250; J3010; J3490; J7030; Q0163; Q9967

== ENCOUNTER → 2024-05-07 12:38 | Outpatient (BNVA) | payer MEDICAID, SELFPAY | PROVIDERS: PCP Nurse Practitioner Family; Visit Provider Internal Medicine | DX: R07.9 Chest pain, unspecified (principal) | CPT/HCPCS: 93005 ==

== ENCOUNTER 2024-06-10 14:59 | Outpatient (CLI) | payer MEDICAID, SELFPAY ==
--- NOTE | 2024-06-10 15:00 | USCV_ITS ---
Arlene Herrera Age: 38 Gender: F : 1985 Exam Date: 06/10/2024 15:15 Ordering Phys: Wu Dudley M.D ([email or web address]) Technologist: [place] [facility] [place]: BP: 120 / 70 HR: 80 Rhythm: Sinus Technical Quality: Adequate MEASUREMENTS (Male / Female) Normal Values 2D ECHO LV Diastolic Diameter PLAX 5.5 cm 4.2 - 5.9 / 3.9 - 5.3 cm IVS Diastolic Thickness 1.3 cm 0.6 - 1.0 / 0.6 - 0.9 cm IVS Systolic Thickness 1.7 cm LVPW Diastolic Thickness 1.3 cm 0.6 - 1.0 / 0.6 - 0.9 cm LVPW Systolic Thickness 1.6 cm LVOT Diameter 1.8 cm LV Ejection Fraction 2D Teich 45.9 % LV Ejection Fraction MOD 4C 27.3 % LV Ejection Fraction MOD 2C 58.9 % LV Ejection Fraction 2C AL 59.0 % LA Diameter 3.8 cm RA Systolic Volume 4C AL 34.9 ml RA Systolic Volume 4C MOD 32.8 ml Aorta at Sinotubular Diameter 2.4 cm IVC Diameter 1.4 cm M-MODE LA Ao Ratio MM 1.0 AV Cusp Separation MM 2.3 cm DOPPLER AV Peak Velocity 129.0 cm/s LVOT Peak Velocity 81.0 cm/s AV Area Cont Eq vti 1.8 cm squared AV Area Cont Eq pk 1.6 cm squared MV Peak Velocity 102.0 cm/s MV Area PHT 4.0 cm squared Mitral E to A Ratio 1.1 TR Peak Velocity 110.0 cm/s TR Peak Gradient 4.8 mmHg TV Peak E Velocity 105.0 cm/s PV Peak Velocity 82.0 cm/s FINDINGS Left Ventricle Moderately increased left ventricular cavity size. Severely decreased left ventricular systolic function. Left ventricular ejection fraction is estimated at 27 %. Global left ventricular hypokinesis. Grade I/IV diastolic dysfunction (abnormal relaxation filling pattern), normal to mildly elevated filling pressures. Right Ventricle The right ventricle is normal in size and function. Right Atrium The right atrium is normal in size. Left Atrium The left atrium is normal in size. Mitral Valve Structurally normal mitral valve. No mitral valve stenosis. Trace mitral valve regurgitation. Aortic Valve Moderate aortic valve calcification. No aortic valve stenosis. Trace aortic valve regurgitation. Tricuspid Valve Structurally normal tricuspid valve without significant stenosis or regurgitation. Pulmonary artery systolic pressure is normal. Pulmonic Valve Structurally normal pulmonic valve without significant stenosis. There is no pulmonic regurgitation. Pericardium Normal pericardium without effusion. Aorta Normal ascending aorta dimension. IVC The inferior vena cava appears normal. CONCLUSIONS Moderately increased left ventricular cavity size. Severely decreased left ventricular systolic function. Left ventricular ejection fraction is estimated at 27 %. Global left ventricular hypokinesis. Grade I/IV diastolic dysfunction (abnormal relaxation filling pattern), normal to mildly elevated filling pressures. No significant valve abnormalities. There is no pericardial effusion. Right atrial pressure is around 5 mm of mercury. Sherin Castaneda MD (Electronically Signed) Final Date: 27 June 2024 15:58 S
== END 2024-06-10 15:00 | disposition home or self-care (01) ==
PROVIDERS: PCP Nurse Practitioner Family; Visit Provider Internal Medicine
DX: I47.10 Supraventricular tachycardia, unspecified (principal); R07.9 Chest pain, unspecified; R06.02 Shortness of breath; R93.1 Abnormal findings on diagnostic imaging of heart and coronary circulation; I51.7 Cardiomegaly; I35.8 Other nonrheumatic aortic valve disorders
CPT/HCPCS: 93306